=== PATIENT | female | born 1975 | race Caucasian/White ===

== ENCOUNTER 2017-08-16 14:53 | Emergency (ER) | payer OTHER ==
[~2017-08-16] VITALS: Ht 154.9 cm; Wt 66.0 kg
[2017-08-16 14:53] VITALS: BP 144/63; PULSE 93; RESP 18; TEMP 98.9; O2SAT 100
[~2017-08-16 14:53] MED LIST: SLOW50TA
[2017-08-16] MEDS ORDERED: IOHEXOL 350 MG/ML 10 ML VIAL (for RAD DIAG) IVCONTRAST ONE (14:54)
[2017-08-16 16:04] LABS: AUTOMATED NEUTROPHIL # 7.5 TH/MM3 (1.8-7.7); BASOPHIL # 0.1 TH/MM3 (0-0.2); BASOPHIL % 0.7 % (0.0-2.0); EOSINOPHIL # 0.2 TH/MM3 (0-0.4); EOSINOPHIL % 1.8 % (0.0-4.0); HEMATOCRIT 43.3 % (35.0-46.0); HEMOGLOBIN 14.9 GM/DL (11.6-15.3); LYMPH % 16.9 % (9.0-44.0); LYMPHOCYTE # 1.8 TH/MM3 (1.0-4.8); MEAN CELL VOLUME 91.4 FL (80.0-100.0); MEAN CORPUSCULAR HEMOGLOBIN 31.5 PG (27.0-34.0); MEAN CORPUSCULAR HGB CONC 34.4 % (32.0-36.0); MEAN PLATELET VOLUME 9.1 FL (7.0-11.0); MONO % 8.5 % (0.0-8.0); MONOCYTE # 0.9 TH/MM3 (0-0.9); NEUT % 72.1 % (16.0-70.0); PLATELET COUNT 279 TH/MM3 (150-450); RED BLOOD COUNT 4.74 MIL/MM3 (4.00-5.30); RED CELL DISTRIBUTION WIDTH 13.5 % (11.6-17.2); WHITE BLOOD COUNT 10.4 TH/MM3 (4.0-11.0)
[2017-08-16 16:24] LABS: BILIRUBIN, URINE NEG (NEG); BLOOD, URINE NEG (NEG); GLUCOSE,URINE NEG (NEG); KETONE, URINE NEG (NEG); NITRITE,URINE NEG (NEG); SQUAMOUS EPITHELIAL CELL URINE 1 /hpf (0-5); URINE COLOR LIGHT-YELLOW (YELLW/STRAW); URINE LEUKOCYTE ESTERASE NEG (NEG)
[2017-08-16 16:26] LABS: ALBUMIN 4.4 GM/DL (3.4-5.0); BICARBONATE 25.4 MEQ/L (21.0-32.0); BLOOD UREA NITROGEN 12 MG/DL (7-18); CALCIUM 9.4 MG/DL (8.5-10.1); CHLORIDE 104 MEQ/L (98-107); CREATININE 0.69 MG/DL (0.50-1.00); GLOMERULAR FILTRATION RATE 94 ML/MIN (>89); GLUCOSE,RANDOM 93 MG/DL (74-106); SODIUM (NA) 137 MEQ/L (136-145)
[2017-08-16 16:30] LABS: ALKALINE PHOSPHATASE 70 U/L (45-117); ALT (GPT) 59 U/L (10-53); AST (GOT) 27 U/L (15-37); TOTAL BILIRUBIN ADULT 0.2 MG/DL (0.2-1.0); TOTAL PROTEIN 8.5 GM/DL (6.4-8.2)
[2017-08-16] MEDS ORDERED: ENOX60P SQ (17:12)
[2017-08-16 17:14] VITALS: BP 148/77; PULSE 80; RESP 16; TEMP 98.4; O2SAT 100
[2017-08-16] MEDS ORDERED: ACETAMINOPHEN 325 MG TAB PO ONE (18:00)
--- NOTE | 2017-08-16 18:03 | PD ---
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 Patient had the same pain about one month ago and was diagnosed with blood clot to the right ovary. Her CUSTOMER SERVICE PROFESSIONAL put her on Lovenox. She has been injecting Lovenox since then and doing well until a couple of days ago. Pain is progressively worsening. Reached peak last night. Patient states she was doubled over in pain. She had associated nausea because of the pain. No diarrhea. She has been taking Tylenol without relief in symptoms. She called her CUSTOMER SERVICE PROFESSIONAL today to request something stronger and they recommended she come to the emergency room. Denies possibility of . Last menstrual cycle was over a year ago, patient has had an ablation. Denies urinary symptoms. PFSH Past Medical History Asthma: No Bipolar Disorder: No Anxiety: No Depression: No Cancer: No High Cholesterol: No Chemotherapy: No Chest Pain: No Congestive Heart Failure: No COPD: No Cerebrovascular Accident: No Coronary Artery Disease: No Diabetes: No Diminished Hearing: No Kidney Stones: No Medical other: Yes (blood clots leading to ovaries) Migraines: No Tetanus Vaccination: < 5 Years ?: Not LMP: over a year ago, hx of ablation : 3 Para: 2 Past Surgical History Appendectomy: No Section: Yes (x3) Cholecystectomy: No Coronary Artery Bypass Graft: No Coronary Stent: No Social History Alcohol Use: No Tobacco Use: No Substance Use: No Allergies-Medications (Allergen,Severity, Reaction): Coded Allergies: No Known Allergies (Verified Allergy, Severe, 03/07/06) Reported Meds & Prescriptions Reported Meds & Active Scripts Active Hydrocodone-Acetamin 5-325 mg (Hydrocodone/Acetaminophen) 5 Mg-325 Mg Tablet 1 Tab PO Q6HR Zofran Liq (Ondansetron HCl) 4 Mg/5 Ml Soln 4 Mg PO Q6HR Reported Lovenox Inj (Enoxaparin Sodium) 60 Mg/0.6 Ml Syr 60 Mg SQ BID Review of Systems Except as stated in HPI: all other systems reviewed are Neg Physical Exam Narrative GENERAL: Well-nourished, well-developed female in no acute distress. Afebrile. Ambulatory. SKIN: Focused skin assessment warm/dry. HEAD: Normocephalic. EYES: No scleral icterus. No injection or drainage. NECK: Supple, trachea midline. No JVD or lymphadenopathy. CARDIOVASCULAR: Regular rate and rhythm without murmurs, gallops, or rubs. RESPIRATORY: Breath sounds equal bilaterally. No accessory muscle use. GASTROINTESTINAL: Abdomen soft, nondistended. There is tenderness to palpation of the right lower quadrant. No peritoneal signs or rebound tenderness. No CVA tenderness. Data Data Last Documented VS Vital Signs Date Time Temp Pulse Resp B/P (MAP) Pulse Ox O2 Delivery O2 Flow Rate FiO2 08/16/17 20:12 08/16/17 19:37 96 16 100 Room Air 08/16/17 17:14 98.4 Orders Orders Complete Blood Count With Diff (08/16/17 15:07) Comprehensive Metabolic Panel (08/16/17 15:07) Lipase (08/16/17 15:07) Prothrombin Time / Inr (Pt) (08/16/17 15:07) Act Partial Throm Time (Ptt) (08/16/17 15:07) Urinalysis - C+S If Indicated (08/16/17 15:07) Ed Urine Pregnancytest Poc (08/16/17 15:07) Ct Abd/Pel W Iv Contrast(Rout) (08/16/17 ) Acetaminophen (Tylenol) (08/16/17 18:00) Iohexol 350 Inj (Omnipaque 350 Inj) (08/16/17 14:54) Ketorolac Inj (Toradol Inj) (08/16/17 19:45) Ed Discharge Order (08/16/17 20:11) Dexamethasone Inj (Decadron Inj) (08/16/17 20:15) Labs Laboratory Tests Test 08/16/17 15:30 White Blood Count 10.4 TH/MM3 Red Blood Count 4.74 MIL/MM3 Hemoglobin 14.9 GM/DL Hematocrit 43.3 % Mean Corpuscular Volume 91.4 FL Mean Corpuscular Hemoglobin 31.5 PG Mean Corpuscular Hemoglobin Concent 34.4 % Red Cell Distribution Width 13.5 % Platelet Count 279 TH/MM3 Mean Platelet Volume 9.1 FL Neutrophils (%) (Auto) 72.1 % Lymphocytes (%) (Auto) 16.9 % Monocytes (%) (Auto) 8.5 % Eosinophils (%) (Auto) 1.8 % Basophils (%) (Auto) 0.7 % Neutrophils # (Auto) 7.5 TH/MM3 Lymphocytes # (Auto) 1.8 TH/MM3 Monocytes # (Auto) 0.9 TH/MM3 Eosinophils # (Auto) 0.2 TH/MM3 Basophils # (Auto) 0.1 TH/MM3 CBC Comment DIFF FINAL Differential Comment Prothrombin Time 10.0 SEC Prothromb Time International Ratio 1.0 RATIO Activated Partial Thromboplast Time 32.4 SEC Urine Color LIGHT-YELLOW Urine Turbidity CLEAR Urine pH 6.0 Urine Specific [place] 1.005 Urine Protein NEG mg/dL Urine Glucose (UA) NEG mg/dL Urine Ketones NEG mg/dL Urine Occult Blood NEG Urine Nitrite NEG Urine Bilirubin NEG Urine Urobilinogen LESS THAN 2.0 MG/DL Urine Leukocyte Esterase NEG Urine RBC LESS THAN 1 /hpf Urine Squamous Epithelial Cells 1 /hpf Microscopic Urinalysis Comment CULT NOT INDICATED Blood Urea Nitrogen 12 MG/DL Creatinine 0.69 MG/DL Random Glucose 93 MG/DL Total Protein 8.5 GM/DL Albumin 4.4 GM/DL Calcium Level 9.4 MG/DL Alkaline Phosphatase 70 U/L Aspartate Amino Transf (AST/SGOT) 27 U/L Alanine Aminotransferase (ALT/SGPT) 59 U/L Total Bilirubin 0.2 MG/DL Sodium Level 137 MEQ/L Potassium Level 4.2 MEQ/L Chloride Level 104 MEQ/L Carbon Dioxide Level 25.4 MEQ/L Anion Gap 8 MEQ/L Estimat Glomerular Filtration Rate 94 ML/MIN Lipase 131 U/L [facility] Medical Decision Making Medical Screen Exam Complete: Yes Emergency Medical Condition: Yes Medical Record Reviewed: Yes Differential Diagnosis Blood clot, appendicitis, torsion Narrative Course 42-year-old female presents to the emergency room for evaluation of right lower quadrant abdominal pain that started a couple days ago. Patient had history of the same one month ago and was diagnosed with a blood clot in her right ovary. She has been on Lovenox since. She had negative hematology workup. States she has been doing well until a few days ago and pain recurred. It is progressively worsening. Abdomen is soft, nondistended. There is tenderness all patient of the right lower quadrant. No peritoneal signs or rebound tenderness. CBC and CMP are unremarkable. test is negative. UA is negative. CT shows a 2 cm uterine fibroid. No mention of blood clots in report. I spoke to the CUSTOMER SERVICE PROFESSIONAL lamination inspector for Dr. Cortes, Dr. Lawrence, who recommends treating pain with anti-inflammatories and steroids. Patient was given a copy of her report. She was told to follow-up with Dr. Cortes tomorrow. She was discharged with #8 Lortab and Zofran. Told to return for worsening symptoms. She understands and agrees to plan. Diagnosis Primary Impression: Uterine fibroid Qualified Codes: D25.9 - Leiomyoma of uterus, unspecified Referrals: Frank Cortes MD Additional Instructions: Continue Lovenox. Take ibuprofen as directed, as needed for pain. Follow-up with Dr. Cortes's office tomorrow morning. Call for appointment. Please bring copy of your reports. Return for worsening symptoms. Scripts Hydrocodone/Acetaminophen (Hydrocodone-Acetamin 5-325 mg) 5 Mg-325 Mg Tablet 1 TAB PO Q6HR, #8 Prov: Natali Pond MD 08/16/17 Ondansetron Liq (Zofran Liq) 4 Mg/5 Ml Soln 4 MG PO Q6HR for Nausea/Vomiting, #15 ML 0 Refills Prov: Antoine Burks MD 08/16/17 Disposition: 01 DISCHARGE HOME Condition: Stable Nicolle Guzman Aug 16, 2017 18:03
--- NOTE | 2017-08-16 19:00 | RADRPT ---
EXAM DATE/TIME: 08/16/2017 18:31 [place] COMPARISON: No previous studies available for comparison. INDICATIONS : Right lower abdominal pain, right side back pain. IV CONTRAST: 85 cc Omnipaque 350 (iohexol) IV ORAL CONTRAST: No oral contrast ingested. RADIATION DOSE: 10.96 CTDIvol (mGy) MEDICAL HISTORY : Blood clots in ovaries. SURGICAL HISTORY : section. ENCOUNTER: Initial ACUITY: 3 days PAIN SCALE: 8/10 LOCATION: Right lower quadrant TECHNIQUE: Volumetric scanning of the abdomen and pelvis was performed. Using automated exposure control and ad justment of the mA and/or kV according to patient size, radiation dose was kept as low as reasonably achievable to obtain optimal diagnostic quality images. DICOM format image data is available electro nically for review and comparison. FINDINGS: LOWER LUNGS: The visualized lower lungs are clear. There is a tiny pericardial effusion. LIVER: Homogeneous density without lesion. There is no dilation of the biliary tree. No calcified gallston es. SPLEEN: Normal size without lesion. PANCREAS: Within normal limits. KIDNEYS: Normal in size and shape. There is no mass, stone or hydronephrosis. ADRENAL GLANDS: Within normal limits. VASCULAR: There is no aortic aneurysm. BOWEL/MESENTERY: The stomach, small bowel, and colon demonstrate no acute abnormality. There is no free intraperitone al air or fluid. The appendix is normal. ABDOMINAL WALL: Within normal limits. RETROPERITONEUM: There is no lymphadenopathy. BLADDER: No wall thickening or mass. REPRODUCTIVE: There is a 2.0 x 2.6 cm cystic uterine mass consistent with possible cystic fibroid. test i s suggested to rule out intrauterine . INGUINAL: There is no lymphadenopathy or hernia. MUSCULOSKELETAL: Within normal limits for patient age. CONCLUSION: 1. 2.0 x 2.6 cm cystic uterine mass consistent with possible cystic fibroid. test is sugges aneudy to rule out intrauterine if clinical indicated. 2. Tiny pericardial effusion. Umer Simms MD on August 16, 2017 at 18:52 Board Certified Radiologist. This report was verified electronically.
[2017-08-16 19:37] VITALS: BP 116/84; PULSE 96; RESP 16; O2SAT 100
[2017-08-16] MEDS ORDERED: KETOROLAC TROMETHAMINE 30 MG/ML (IVP) VIAL IV PUSH ONE (19:45)
[2017-08-16] MEDS ORDERED: DEXAMETHASONE SOD PHOS 4 MG/ML VIAL IM ONE (20:15)
[2017-08-16] MEDS ORDERED: ZOFR4SOL PO (20:19)
[2017-08-16] MEDS ORDERED: HYDR-3516 PO (20:26)
== END 2017-08-16 20:38 | disposition home or self-care (01) ==
LOC: NEPC 14:53
DX: D25.9 Leiomyoma of uterus, unspecified (principal)
CPT/HCPCS: 74177; 80053; 81001; 83690; 84703; 85025; 85610; 85730; 96372; 96374; 99285; J1100; J1885; Q9967

== ENCOUNTER → 2017-08-28 | Outpatient (CLI) | payer OTHER ==
[~2017-08-28] MED LIST changes: +ENOX60P SQ; +HYDR-3516 PO; +NEUR100C PO; +PROM25TA10 PO; -SLOW50TA; +ZOFR4SOL PO
[2017-08-28 14:43] LABS: AUTOMATED NEUTROPHIL # 6.1 TH/MM3 (1.8-7.7); BASOPHIL # 0.1 TH/MM3 (0-0.2); BASOPHIL % 1.1 % (0.0-2.0); EOSINOPHIL # 0.3 TH/MM3 (0-0.4); EOSINOPHIL % 2.9 % (0.0-4.0); HEMATOCRIT 41.2 % (35.0-46.0); HEMOGLOBIN 14.2 GM/DL (11.6-15.3); LYMPH % 19.7 % (9.0-44.0); LYMPHOCYTE # 1.8 TH/MM3 (1.0-4.8); MEAN CELL VOLUME 91.4 FL (80.0-100.0); MEAN CORPUSCULAR HEMOGLOBIN 31.6 PG (27.0-34.0); MEAN CORPUSCULAR HGB CONC 34.6 % (32.0-36.0); MEAN PLATELET VOLUME 8.9 FL (7.0-11.0); MONO % 7.9 % (0.0-8.0); MONOCYTE # 0.7 TH/MM3 (0-0.9); NEUT % 68.4 % (16.0-70.0); PLATELET COUNT 322 TH/MM3 (150-450); RED CELL DISTRIBUTION WIDTH 13.3 % (11.6-17.2); WHITE BLOOD COUNT 8.9 TH/MM3 (4.0-11.0)
[2017-08-28 14:57] LABS: PROTHROMBIN TIME - PATIENT 10.2 SEC (9.8-11.6)
[2017-08-28 15:08] LABS: BILIRUBIN, URINE NEG (NEG); BLOOD, URINE NEG (NEG); GLUCOSE,URINE NEG (NEG); KETONE, URINE NEG (NEG); NITRITE,URINE NEG (NEG); PH, URINE 6.5 (5.0-8.5); SQUAMOUS EPITHELIAL CELL URINE <1 /hpf (0-5); URINE COLOR LIGHT-YELLOW (YELLW/STRAW); URINE LEUKOCYTE ESTERASE NEG (NEG)
== END ==
LOC: CPRE 14:06
PROVIDERS: ATTEND Obstetrics & Gynecology
DX: Z01.812 Encounter for preprocedural laboratory examination (principal); Z01.818 Encounter for other preprocedural examination
CPT/HCPCS: 36415; 81001; 85025; 85610; 85730

== ENCOUNTER 2017-08-30 09:20 | Observation (INO) | payer OTHER ==
[~2017-08-30] VITALS: Ht 154.9 cm; Wt 64.9 kg
[~2017-08-30 09:20] MED LIST changes: -HYDR-3516 PO; -PROM25TA10 PO; -ZOFR4SOL PO
[2017-08-30] MEDS ORDERED: APREPITANT 40 MG CAP ONE (10:15)
[2017-08-30] MEDS ORDERED: ceFAZolin 2 GM PREMIX 50 ML ONE (10:15)
[2017-08-30] MEDS ORDERED: METOPROLOL TARTRATE 25 MG TAB PO PRN (10:45)
[2017-08-30] MEDS ORDERED: CHLORHEXIDINE GLUCONATE 2 % 1 PACK (2 CLOTHS) TOPICAL PRN (10:45)
[2017-08-30] MEDS ORDERED: POVIDONE IODINE 5% (ANTISEPSIS KIT) 4 APPLICATIONS EACH NARE PRN (10:45)
[2017-08-30] MEDS ORDERED: LACTATED RINGER'S 1000 ML IV PRN (10:45)
[2017-08-30] MEDS ORDERED: SODIUM CHLORID 0.9% 500 ML IV PRN (10:45)
[2017-08-30] MEDS ORDERED: APREPITANT 40 MG CAP PO SCH (10:45)
[2017-08-30] MEDS ORDERED: ceFAZolin 2 GM PREMIX 50 ML IV ONE ×2 (11:00→12:15)
[2017-08-30] MEDS ORDERED: ACETAMINOPHEN 1000 MG/100 ML 100 ML IV ONE (11:48)
[2017-08-30] MEDS ORDERED: ONDANSETRON HCL 4 MG/2 ML VIAL IV ONE (12:00)
[2017-08-30] MEDS ORDERED: LIDOCAINE HCL 1% PF 5 ML SYRINGE OTHER ONE (12:00)
[2017-08-30] MEDS ORDERED: LACTATED RINGER'S 1000 ML INJ 2,000 ML IV ONE (12:00)
[2017-08-30] MEDS ORDERED: GLYCOPYRROLATE 1 MG/5 ML SYRINGE IV PUSH ONE (12:00)
[2017-08-30] MEDS ORDERED: ROCURONIUM INJ 50 MG/5 ML SYRINGE IV PUSH ONE (12:00)
[2017-08-30] MEDS ORDERED: PROPOFOL 200 MG/20 ML AMP IV ONE (12:00)
[2017-08-30] MEDS ORDERED: NEOSTIGMINE 5 MG/5 ML SYRINGE IV PUSH ONE (12:00)
[2017-08-30] MEDS ORDERED: DEXAMETHASONE SOD PHOS 4 MG/ML VIAL IV ONE (12:00)
[2017-08-30] MEDS ORDERED: KETOROLAC TROMETHAMINE 30 MG/ML (IVP) VIAL IV PUSH ONE (12:00)
[2017-08-30] MEDS ORDERED: MIDAZOLAM HCL 2 MG/2 ML VIAL ONE (12:05)
[2017-08-30] MEDS ORDERED: FAMOTIDINE 20 MG/2 ML VIAL ONE (12:09)
[2017-08-30] MEDS ORDERED: BUPIVACAINE HCL PF 0.25% 30 ML VIAL ONE (12:16)
[2017-08-30] MEDS: LACTATED RINGER'S 1000 ML INJ 1,000 ML IV SCH ×2 (14:49→20:00)
[2017-08-30] MEDS ORDERED: LORazepam 0.5 MG TAB PO PRN (15:00)
[2017-08-30] MEDS ORDERED: HYDROmorphone HCL PF 2 MG/ML VIAL IV PUSH PRN (15:00)
[2017-08-30] MEDS ORDERED: oxyCODONE/ACETAMINOPHEN 5 MG/325 MG TAB PO PRN (15:00)
[2017-08-30] MEDS: DOCUSATE SODIUM 100 MG CAP PO SCH (15:00)
[2017-08-30] MEDS ORDERED: diphenhydrAMINE HCL 25 MG CAP PO PRN (15:00)
[2017-08-30] MEDS ORDERED: IBUPROFEN 600 MG TAB PO PRN (15:00)
[2017-08-30] MEDS ORDERED: ZOLPIDEM TARTRATE 5 MG TAB PO PRN (15:00)
[2017-08-30] MEDS: SODIUM CHLORIDE 0.9% FLUSH 10 ML FLUSH IV FLUSH SCH ×2 (15:00→19:19)
[2017-08-30] MEDS ORDERED: PROMETHAZINE INJ 25 MG/ML VIAL IM PRN (15:00)
[2017-08-30] MEDS ORDERED: SODIUM CHLORIDE 0.9% FLUSH 10 ML FLUSH IV FLUSH PRN (15:00)
[2017-08-30] MEDS ORDERED: KETOROLAC TROMETHAMINE 30 MG/ML (IVP) VIAL IVP PRN (15:00)
[2017-08-30] MEDS ORDERED: DO NOT ADM ANY ANTICOAGULANT DRUGS PRN (15:24)
[2017-08-30] MEDS ORDERED: *MEPERIDINE 25 MG INJ VIAL PERIprocedural Use ONLY ONE (15:52)
[2017-08-30] MEDS ORDERED: *ONDANSETRON 4 MG VIAL PERIprocedural Use ONLY ONE (16:03)
[2017-08-30 16:39] VITALS: BP 112/66; PULSE 87; RESP 17; TEMP 96.1; O2SAT 98
[2017-08-30] MEDS: ONDANSETRON HCL 4 MG/2 ML VIAL IVP PRN (16:54)
[2017-08-30] MEDS: oxyCODONE/ACETAMINOPHEN 5 MG/325 MG TAB PO PRN (19:58)
[2017-08-30 20:00] VITALS: BP 105/63; PULSE 91; RESP 18; TEMP 97.9; O2SAT 94
[2017-08-31] VITALS: BP 96/53; PULSE 82; RESP 16; TEMP 98.4; O2SAT 96
[2017-08-31] MEDS: ONDANSETRON HCL 4 MG/2 ML VIAL IVP PRN ×2 (02:12→07:37)
[2017-08-31] MEDS: DOCUSATE SODIUM 100 MG CAP PO SCH (02:13)
[2017-08-31 03:58] VITALS: BP 103/59; PULSE 85; RESP 18; TEMP 98.2; O2SAT 96
[2017-08-31] MEDS: oxyCODONE/ACETAMINOPHEN 5 MG/325 MG TAB PO PRN (04:18)
[2017-08-31] MEDS: LACTATED RINGER'S 1000 ML INJ 1,000 ML IV SCH (05:07)
[2017-08-31 07:16] LABS: BICARBONATE 25.8 MEQ/L (21.0-32.0); CALCIUM 8.5 MG/DL (8.5-10.1); CREATININE 0.72 MG/DL (0.50-1.00)
[2017-08-31] MEDS: SODIUM CHLORIDE 0.9% FLUSH 10 ML FLUSH IV FLUSH SCH (07:37)
[2017-08-31 08:00] VITALS: BP 107/60; PULSE 81; RESP 20; TEMP 98; O2SAT 97
--- NOTE | 2017-08-31 08:33 | MP ---
cc: FRANK SPAIN M.D. 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 PROCEDURE Exam under anesthesia, operative laparoscopic total hysterectomy with cystourethroscopy. 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 SURGEON Frank Spain MD ANESTHESIA General with endotracheal intubation. ESTIMATED BLOOD LOSS 50 cc DRAINS Reese to gravity OPERATIVE FINDINGS The patient had previous endometrial ablation with scarred endometrial cavity, distortion of the uterine architecture with posterior myoma. The ovaries were normal bilaterally without significant pathology evident. There was no hematoma or venous engorgement of the pelvic vessels. INDICATIONS FOR PROCEDURE Patient with recurrent cyclical pelvic pain requiring narcotic use has been to the emergency department twice over the last two months. Initial CT scan performed at [facility] revealed bilateral thrombosis of the gonadal veins. She was treated with Lovenox and subsequent CT scan results demonstrated resolution of the thrombosis. The patient was placed on aspirin. Pain continued despite no significant abnormalities on the CT or ultrasound relative to what was already present in the context of her ablation and uterine fibroid. Given the patient's intractable pain and recurrent loss of ability to work, the patient was offered hysterectomy. The patient signed a consent for the above procedure. She had requested that both ovaries be left intact if they appeared normal during the procedure. The patient signed a consent understanding potential risks, benefits, and complications of the procedure. PROCEDURE The patient received Ancef 2 grams previously before surgery. Once in the operative suite, she underwent general anesthesia with endotracheal intubation. She was carefully positioned in the dorsolithotomy position using yellow-fin stirrups on the lower extremities. She had sequential placed for VTE prophylaxis. She was prepped and draped and a time-out was conducted agreed by all present in the room. A simple Reese catheter was inserted by sterile technique draining clear urine. The cervix was visualized by a bivalve retractor. The cervix was secured with a tenaculum anteriorly and then attempts at gaining access to the endometrial cavity were complicated. A channel was made placing the V-Care device was delayed until laparoscopy was initiated. Gloves were changed. The retractor was left in place. The umbilical port was chosen first. A 5-mm visible port trocar was placed directly into the peritoneal cavity with insufflation of CO2 at low pressure. She was then placed in Trendelenburg positioning and an accessory port using a 5-mm trocar under direct vision in an avascular plane was placed at the abdominal right flank. Manipulation of the uterus revealed slight dissection of the V-Care to the patient's left side. The V-Care was inflated and it was left intact for use for manipulation. Accessory ports were then placed on the left side in the same fashion using a 5 mm port and then a suprapubic port was placed using a 12 mm port. The dissection initiated by dividing the round ligament and the uterine ovarian vessels on the left side. This allowed retroperitoneal dissection. The anterior bladder flap was developed and this was brought across the broad ligament to the contralateral side where the right round ligament and uterine ovarian pedicle were taken down. These were all accomplished using the harmonic scalpel with good result. No hematoma or active bleeding was incurred. Once the uterine artery and vein were isolated and secured, the colpotomy incisions were made to allow access of the vaginal vault and removal of the uterus with the cervix. Once this was complete, the uterus intact with the cervix were removed vaginally. The vaginal cuff was intact. There is no active bleeding. Both ureters were peristalsing and visualized through the peritoneum without interruption. There was no blood in the urine in the Reese collection bag during the case. A #1 Stratafix suture was utilized to close the cuff. This was a unidirectional suture placed starting from the left angle and bringing it across to the right with good closure. The integrity of the closure was tested with a sponge stick through the vagina and after this was complete, the pelvis was irrigated and observed off pressure. No active bleeding or hematoma was noted. The suture needle was trimmed and retrieved. A full count was made and correct. A piece of Interceed was placed over the pelvic floor as an anti-adhesion barrier. Once this was complete, the 12 mm port site was closed with a #1 Vicryl suture using a crossbow device. The fascia was closed with single interrupted suture without complication. Again observation of the pelvis was dry. There was no hematoma or active bleeding. The trocar sites were closed after decompressing the pneumoperitoneum and removing all trocars. The incisions were closed with a subcuticular suture of 4-0 Monocryl with Steri-Strips and Band-Aids. After the patient was examined from the closure of her abdominal incisions, the Reese catheter was noted to be loose in the urethra and the Reese had been allowed to be removed without evidence of the Reese bulb being intact. Examination of the Reese bulb demonstrated a small tear in the bulb. Due to concerns for bladder integrity, a simple cystourethroscopy was performed using normal saline and a 70 degree lens. This was inserted into the urethra and bladder where the urethra and bladder were intact. There was no interruption. There was no laceration. There was no blood. Both ureters were peristalsing normally. There is no evidence of loss of integrity or injury to the bladder or ureters. Once this was complete, the bladder was decompressed. The cystourethroscopy was complete. The scope was removed and a Reese catheter was reinserted draining clear urine and collected to a drainage bag. Re-examination of the vaginal vault proved dry at that point as well. At the completion of the procedure, the patient was stable. She was taken to the recovery room on room air. MD REY Long/MERY /6:04 PM /8:11 AM
[2017-08-31 08:49] LABS: AUTOMATED NEUTROPHIL # 12.8 TH/MM3 (1.8-7.7); BASOPHIL % 0.2 % (0.0-2.0); EOSINOPHIL % 0.1 % (0.0-4.0); HEMATOCRIT 34.6 % (35.0-46.0); HEMOGLOBIN 11.8 GM/DL (11.6-15.3); LYMPH % 7.7 % (9.0-44.0); LYMPHOCYTE # 1.2 TH/MM3 (1.0-4.8); MEAN CELL VOLUME 90.5 FL (80.0-100.0); MEAN CORPUSCULAR HEMOGLOBIN 30.8 PG (27.0-34.0); MEAN PLATELET VOLUME 9.3 FL (7.0-11.0); MONO % 6.8 % (0.0-8.0); NEUT % 85.2 % (16.0-70.0); PLATELET COUNT 253 TH/MM3 (150-450); RED BLOOD COUNT 3.82 MIL/MM3 (4.00-5.30); RED CELL DISTRIBUTION WIDTH 13.2 % (11.6-17.2)
--- NOTE | 2017-08-31 10:25 | HHI.PR ---
Subjective Remarks POD#1, s/p TLH; Doing well, pain is well controlled,mild nausea on zofran, eating well. Objective Vital Signs Vital Signs Date Time Temp Pulse Resp B/P (MAP) Pulse Ox O2 Delivery O2 Flow Rate FiO2 08/31/17 08:00 98.0 81 20 107/60 (76) 97 08/31/17 03:58 98.2 85 18 103/59 (74) 96 08/31/17 00:00 98.4 82 16 96/53 (67) 96 08/30/17 20:00 97.9 91 18 105/63 (77) 94 08/30/17 16:39 96.1 87 17 112/66 (81) 98 08/30/17 16:15 88 16 115/63 (80) 100 Nasal Cannula 2 08/30/17 16:00 90 16 113/59 (77) 100 Nasal Cannula 2 08/30/17 15:45 94 16 116/71 (86) 100 Nasal Cannula 2 08/30/17 15:30 104 16 117/70 (86) 100 Nasal Cannula 2 08/30/17 15:24 97.9 107 16 118/61 (80) 100 Nasal Cannula 2 I/O 08/30/17 08/30/17 08/30/17 08/31/17 08/31/17 08/31/17 07:00 15:00 23:00 07:00 15:00 23:00 Intake Total 2200 ml 1000 ml 1000 ml 120 ml Output Total 200 ml 650 ml Balance 2000 ml 1000 ml 350 ml 120 ml Intake Oral 0 ml 120 ml IV Total 2200 ml 1000 ml 1000 ml Output Urine Total 150 ml 650 ml Estimated Blood Loss 50 ml # Voids 0 # Bowel Movements 0 0 Result Diagram: 08/31/17 0803 08/31/17 0600 Objective Remarks Chest is clear, regular rate and rhythm. Abdomen is soft and non-distended. Incision is clean and dry. Ext no CCE. A/P Assessment and Plan Post Op Day 1 Doing well; Surgery explained to patient. Reese was removed but she has not yet voided. Home today after she voids and return to office in one weeks. Frank Cortes MD Aug 31, 2017 10:25
[2017-08-31] MEDS ORDERED: PROM25TA10 PO (10:27)
--- NOTE | 2017-08-31 10:28 | HHI.DCPOC ---
Discharge Care Plan Your Health Problems Are: Abdominal pain Fever, temperature>100.4 Incisions/drains Pelvic pain Vaginal bleeding Report Symptoms to Your Doctor -Temperature above 100.5 degrees -Redness, of incision or excessive or foul smelling drainage -Unusual pain or calf pain -Increased vaginal bleeding -Painful or difficulty urinating -Feelings of extreme sadness or anxiety after 2 weeks Goals to Promote Your Health * To prevent worsening of your condition and complications * To maintain your health at the optimal level Directions to Meet Your Goals Take your medications as prescribed Follow your dietary instruction Follow activity as directed Ensure plenty of rest for recovery Drink fluids for hydration Keep your appointments as scheduled Take your immunizations and boosters as scheduled If your symptoms worsen call your PCP, if no PCP go to Urgent Care Center or Emergency Room Smoking is Dangerous to Your Health. Avoid second hand smoke Call the 24-hour crisis hotline for domestic abuse at Frank Cortes MD Aug 31, 2017 10:28
== END 2017-08-31 11:37 | disposition home or self-care (01) ==
LOC: HSDC 09:20 → HSDI 14:52 → N07A 16:31
PROVIDERS: ADMIT Obstetrics & Gynecology; ATTEND Obstetrics & Gynecology
DX: D25.1 Intramural leiomyoma of uterus (principal); N80.0 Endometriosis of uterus; N88.8 Other specified noninflammatory disorders of cervix uteri; N72 Inflammatory disease of cervix uteri; I82.90 Acute embolism and thrombosis of unspecified vein; R10.2 Pelvic and perineal pain; Z79.01 Long term (current) use of anticoagulants
CPT/HCPCS: 00840; 58570; 80048; 85025; 88307; 94150; 96361; 96372; 96374; C1765; G0378; J0131; J0690; J1100; J1170; J1885; J2175; J2250; J2405; J2550; J2710; J3010; J7120; J8501